=== PATIENT | female | born 1985 | race Caucasian/White ===

== ENCOUNTER → 2018-05-15 09:14 | Outpatient (CLI) | payer OTHER, SELFPAY | PROVIDERS: PCP Family Medicine; Visit Provider Nurse Practitioner | DX: E03.9 Hypothyroidism, unspecified (principal); E03.8 Other specified hypothyroidism; E06.3 Autoimmune thyroiditis | CPT/HCPCS: 36415; 84439; 84443 ==

== ENCOUNTER → 2018-10-13 14:12 | Outpatient (CLI) | payer OTHER, SELFPAY ==
[2018-10-13 17:12] LABS: Free T4, Direct Thyroxine 1.23 ng/dL (0.78-2.19)
== END ==
PROVIDERS: PCP Family Medicine; Visit Provider Nurse Practitioner
DX: E03.8 Other specified hypothyroidism (principal); E06.3 Autoimmune thyroiditis
CPT/HCPCS: 36415; 84439; 84443

== ENCOUNTER → 2019-08-11 10:16 | Outpatient (CLI) | payer OTHER, SELFPAY ==
[2019-08-11 11:47] LABS: TSH w/ Reflex to FT4 0.26 uIU/mL (0.47-4.68)
[2019-08-11 12:27] LABS: Free T4, Direct Thyroxine 1.31 ng/dL (0.78-2.19)
== END ==
PROVIDERS: PCP Family Medicine; Visit Provider Family Medicine
DX: E03.9 Hypothyroidism, unspecified (principal)
CPT/HCPCS: 36415; 84439; 84443

== ENCOUNTER → 2019-10-09 15:03 | Outpatient (CLI) | payer OTHER, SELFPAY ==
[2019-10-09 16:51] LABS: Thyroid Stimulating Hormone 0.75 uIU/mL (0.47-4.68)
== END ==
PROVIDERS: PCP Family Medicine; Visit Provider Family Medicine
DX: E03.9 Hypothyroidism, unspecified (principal)
CPT/HCPCS: 36415; 84443

== ENCOUNTER → 2020-08-08 15:21 | Outpatient (CLI) | payer OTHER, SELFPAY ==
[2020-08-08 19:05] LABS: TSH w/ Reflex to FT4 3.68 uIU/mL (0.47-4.68)
== END ==
PROVIDERS: PCP Family Medicine; Referring Provider Family Medicine; Visit Provider Family Medicine
DX: E03.9 Hypothyroidism, unspecified (principal)
CPT/HCPCS: 36415; 84443

== ENCOUNTER → 2020-11-03 16:00 | Outpatient (CLI) | payer OTHER, SELFPAY | PROVIDERS: PCP Family Medicine; Referring Provider Family Medicine; Visit Provider Family Medicine | DX: E03.9 Hypothyroidism, unspecified (principal) | CPT/HCPCS: 36415; 84443 ==

== ENCOUNTER → 2021-03-16 14:57 | Outpatient (CLI) | payer OTHER, SELFPAY | PROVIDERS: PCP Family Medicine; Visit Provider Family Medicine | DX: L02.93 Carbuncle, unspecified (principal) | CPT/HCPCS: 87070; 87075; 87077; 87147; 87186; 87205 ==

== ENCOUNTER → 2021-07-21 15:03 | Outpatient (CLI) | payer OTHER, SELFPAY ==
[2021-07-21 16:10] LABS: Add Manual Diff / Slide Review NO; Basophils Absolute Auto 0 /uL (0-100); Basophils Percent Auto 0.7 % (0-2); Eosinophils Absolute Auto 0 /uL (0-450); Hematocrit 40.8 % (36-46); Hemoglobin 13.7 g/dL (12.0-16.0); Lymphocytes Absolute Auto 1300 /uL (1100-4500); Lymphocytes Percent Auto 22.2 % (25-40); Mean Corpuscular HGB Conc 33.6 % (30-36); Mean Corpuscular Hemoglobin 30.6 PG (26-34); Mean Corpuscular Volume 91.2 fL (80-100); Monocytes Absolute Auto 300 /uL (0-900); Monocytes Percent Auto 5.2 % (3-14); Neutrophils Absolute Auto 4200 /uL (1500-7000); Neutrophils Percent Auto 71.9 % (50-75); Platelet Count 246 X10^3/uL (150-400); Red Blood Cell Count 4.47 X10^6/uL (4.0-5.2); Red Cell Distribution Width 13.1 % (11.6-14.8); White Blood Cell Count 5.8 X10^3/uL (4.5-11.0)
[2021-07-21 16:31] LABS: Alanine Aminotransferase 20 IU/L (<35); Albumin 4.8 g/dL (3.5-5.0); Albumin Globulin Ratio 1.5 (1.0-2.8); Alkaline Phosphatase 66 U/L (38-126); Aspartate Aminotransferase 28 IU/L (14-36); BUN Creatinine Ratio 14.3 (6-22); Bilirubin Total 0.9 mg/dL (0.2-1.3); Blood Urea Nitrogen 9 mg/dL (7-17); Calcium 9.4 mg/dL (8.4-10.2); Carbon Dioxide 27 mmol/L (22-32); Chloride 104 mmol/L (98-107); Estimated Glomerular Filt Rate > 60.0 mL/min (>60); Globulin 3.3 g/dL (1.7-4.1); Glucose 92 mg/dL (70-100); HEMOLYSIS < 15 (0-50); Potassium 3.9 mmol/L (3.4-5.1); Sodium 138 mmol/L (137-145); Total Protein 8.1 g/dL (6.3-8.2)
[2021-07-21 17:20] LABS: Vitamin B12 304 pg/mL (239-931)
== END ==
PROVIDERS: PCP Family Medicine; Referring Provider Physician Assistant; Visit Provider Physician Assistant
DX: R20.2 Paresthesia of skin (principal)
CPT/HCPCS: 36415; 80053; 82607; 83735; 84443; 85025

== ENCOUNTER → 2022-08-07 12:19 | Outpatient (CLI) | payer OTHER, SELFPAY ==
[2022-08-07 13:08] LABS: Add Manual Diff / Slide Review NO; Basophils Absolute Auto 0 /uL (0-100); Basophils Percent Auto 0.9 % (0-2); Eosinophils Absolute Auto 100 /uL (0-450); Eosinophils Percent Auto 1.5 % (2-4); Hematocrit 38.6 % (36-46); Hemoglobin 13.1 g/dL (12.0-16.0); Lymphocytes Absolute Auto 1400 /uL (1100-4500); Lymphocytes Percent Auto 28.3 % (25-40); Mean Corpuscular Hemoglobin 30.2 PG (26-34); Monocytes Absolute Auto 400 /uL (0-900); Monocytes Percent Auto 8.5 % (3-14); Neutrophils Absolute Auto 3100 /uL (1500-7000); Neutrophils Percent Auto 60.8 % (50-75); Platelet Count 290 X10^3/uL (150-400); Red Blood Cell Count 4.34 X10^6/uL (4.0-5.2); Red Cell Distribution Width 12.7 % (11.6-14.8)
[2022-08-07 13:28] LABS: Alanine Aminotransferase 21 IU/L (<35); Albumin 4.4 g/dL (3.5-5.0); Albumin Globulin Ratio 1.3 (1.0-2.8); Alkaline Phosphatase 55 U/L (38-126); Aspartate Aminotransferase 27 IU/L (14-36); BUN Creatinine Ratio 20.5 (6-22); Bilirubin Total 0.7 mg/dL (0.2-1.3); Blood Urea Nitrogen 15 mg/dL (7-17); Calcium 8.8 mg/dL (8.4-10.2); Carbon Dioxide 29 mmol/L (22-32); Chloride 100 mmol/L (98-107); Estimated Glomerular Filt Rate > 60 mL/min (>60); Globulin 3.3 g/dL (1.7-4.1); Glucose 89 mg/dL (70-100); HEMOLYSIS 21 (0-50); Potassium 4.4 mmol/L (3.4-5.1); Sodium 138 mmol/L (137-145); Total Protein 7.7 g/dL (6.3-8.2)
[2022-08-07 15:40] LABS: TSH w/ Reflex to FT4 1.58 uIU/mL (0.47-4.68)
== END ==
PROVIDERS: PCP Family Medicine; Referring Provider Family Medicine; Visit Provider Family Medicine
DX: R20.2 Paresthesia of skin (principal)
CPT/HCPCS: 36415; 80053; 84443; 85025

== ENCOUNTER → 2023-01-27 15:37 | Outpatient (CLI) | payer OTHER, SELFPAY ==
[2023-01-27 16:57] LABS: TSH w/ Reflex to FT4 0.29 uIU/mL (0.47-4.68)
[2023-01-27 17:53] LABS: Free T4, Direct Thyroxine 1.24 ng/dL (0.78-2.19)
== END ==
PROVIDERS: PCP Family Medicine; Referring Provider Family Medicine; Visit Provider Family Medicine
DX: E03.9 Hypothyroidism, unspecified (principal)
CPT/HCPCS: 36415; 84439; 84443

== ENCOUNTER → 2023-03-16 15:33 | Outpatient (CLI) | payer OTHER, SELFPAY | PROVIDERS: PCP Family Medicine; Referring Provider Family Medicine; Visit Provider Family Medicine | DX: E03.9 Hypothyroidism, unspecified (principal) | CPT/HCPCS: 36415; 84443 ==

== ENCOUNTER → 2023-08-03 15:38 | Outpatient (CLI) | payer OTHER, SELFPAY ==
[2023-08-03 18:24] LABS: TSH w/ Reflex to FT4 4.28 uIU/mL (0.47-4.68)
== END ==
PROVIDERS: PCP Family Medicine; Referring Provider Physician Assistant; Visit Provider Physician Assistant
DX: E03.9 Hypothyroidism, unspecified (principal)
CPT/HCPCS: 36415; 84443

== ENCOUNTER → 2023-09-26 15:13 | Outpatient (CLI) | payer OTHER, SELFPAY | PROVIDERS: PCP Family Medicine; Referring Provider Physician Assistant; Visit Provider Physician Assistant | DX: E03.9 Hypothyroidism, unspecified (principal) | CPT/HCPCS: 36415; 84443 ==

== ENCOUNTER → 2023-11-07 15:06 | Outpatient (CLI) | payer OTHER, SELFPAY ==
[2023-11-07 18:12] LABS: TSH w/ Reflex to FT4 4.92 uIU/mL (0.47-4.68)
[2023-11-07 18:56] LABS: Free T4, Direct Thyroxine 1.12 ng/dL (0.78-2.19)
== END ==
PROVIDERS: PCP Family Medicine; Referring Provider Physician Assistant; Visit Provider Physician Assistant
DX: E03.9 Hypothyroidism, unspecified (principal); R79.89 Other specified abnormal findings of blood chemistry
CPT/HCPCS: 84439; 84443

== ENCOUNTER → 2024-03-19 15:48 | Outpatient (CLI) | payer OTHER, SELFPAY ==
[2024-03-19 18:34] LABS: TSH w/ Reflex to FT4 0.67 uIU/mL (0.47-4.68)
== END ==
LOC: LAB 15:49
PROVIDERS: PCP Student in an Organized Health Care Education/Training Program; Referring Provider Student in an Organized Health Care Education/Training Program; Visit Provider Student in an Organized Health Care Education/Training Program
DX: E03.9 Hypothyroidism, unspecified (principal)
CPT/HCPCS: 36415; 84443

== ENCOUNTER → 2024-07-23 15:05 | Outpatient (CLI) | payer OTHER, SELFPAY ==
[2024-07-23 17:29] LABS: TSH w/ Reflex to FT4 3.59 uIU/mL (0.47-4.68)
== END ==
LOC: LAB 15:06
PROVIDERS: PCP Student in an Organized Health Care Education/Training Program; Referring Provider Student in an Organized Health Care Education/Training Program; Visit Provider Student in an Organized Health Care Education/Training Program
DX: E03.9 Hypothyroidism, unspecified (principal)
CPT/HCPCS: 36415; 84443

== ENCOUNTER 2024-11-09 08:20 | Emergency (ER) | payer OTHER, SELFPAY ==
[2024-11-09] VITALS (8 sets, daily range): BP systolic 116–151; BP diastolic 71–89; PULSE 89–111; RESP 10–23; TEMP 36.8–37.4; O2SAT 98–100; BMI 30.9
--- NOTE | 2024-11-09 08:26 | EKG_ITS ---
[address] [address] Test Date: 2024-11-09 Pat Name: Kristie Boone Department: Room: Gender: Female Acid Dipper: CECE : 1985 Requested By: Order Number: [id number] Reading MD: Ap Cohen MD Measurements Intervals [place] Rate: 99 P: 62 MA: 170 QRS: 48 QRSD: 78 T: 40 QT: 348 QTc: 446 Interpretive Statements Normal sinus rhythm Possible Left atrial enlargement Electronically Signed On 11-09-2024 15:50:43 PST by Ap Cohen MD
--- NOTE | 2024-11-09 08:28 | ED_ITS ---
HPI - Chest Pain General Chief Complaint: Chest Pain Stated Complaint: chest pain, poss anxiety, sent by [facility] Time Seen by Provider: 11/09/24 08:27 Source: patient, RN notes reviewed and old records reviewed Mode of arrival: Ambulatory Limitations: no limitations History of Present Illness HPI narrative: This is a 39-year-old history of hypothyroidism, anxiety who presents with complaint of left upper chest discomfort. Patient states Tuesday started having sort of heartburn symptoms that were midline she was burping a lot and has not upset some with the night before has been persistent but a little bit more localized off to the left side throughout Tuesday, and Tuesday. She states it still has not resolved. She had a similar episode sometime before 2022 they decided that was secondary to anxiety she was started on Lexapro and improved. She is presents today because it has not really resolved. She states she has a mild cold that is just starting with some nasal congestion but no other symptoms she denies fevers or chills no cold cough or congestion. States thinking about it seems to make it worse but putting pressure on the area seems to be helpful. She did note when she leans forward that is seems to increase with a little bit as well. Denies any nausea or vomiting. No shortness of breath. No swelling of extremities. No rash or skin changes. No lightheadedness or passing out. She was on levothyroxine she was taking hydroxyzine. Does not she was to be on Lexapro was very helpful but had side effects that caused her to stop it tried Wellbutrin but did not tolerate it well but has been off any medication for some time. Describes her anxiety as moderate at this time. Has had history of wisdom teeth removal and hemorrhoidectomy. Has a allergy to Suprax. No tobacco, has 1 alcoholic drink daily, no recreational drugs. Follows with Dr. Levi as her primary care physician. Related Data Home Medications Medication Instructions Recorded Confirmed spironolactone 50 mg tablet 50 mg PO BID 06/29/22 03/23/24 Previous Rx's Medication Instructions Recorded bupropion HCl 150 mg 24 hr tablet, 150 mg PO QAM #30 tabs 03/01/24 extended release (Wellbutrin XL) levothyroxine 137 mcg tablet 137 mcg PO DAILY #30 tabs 10/16/24 hydroxyzine HCl 25 mg tablet 25 mg PO BID PRN anxiety #60 tabs 11/08/24 Allergies Allergy/AdvReac Type Severity Reaction Status Date / Time cefixime [From SUPRAX] Allergy Unknown Verified 11/09/24 08:31 Review of Systems Review of Systems ROS Unobtainable: All systems reviewed & are unremarkable except as noted in HPI and below Patient History Medical History Overweight (BMI 25.0-29.9) Situational anxiety Insomnia Hypothyroidism Seasonal allergies Depression Anxiety (~1999) Migraines Headache Scoliosis Acne PCOS (polycystic ovarian syndrome) Ovarian cyst (~2006) Irregular menstrual cycle Irritable bowel syndrome (~1999) Surgical History Status post colonoscopy (~2013) Status post hemorrhoidectomy (~2008) History of third molar tooth extraction (~2008) Family History Grandfather Age: 92 Chronic kidney disease Dementia Sister Age: 28 Type 1 diabetes Stroke Seizures Father Cancer Grandfather Cancer Grandmother Cancer Grandmother No problems noted. Social History marital status: household members: family lives independently: Yes Smoking Status: Never smoker alcohol intake: current substance use type: does not use Smoking Status: Never smoker Exam Narrative Exam Narrative: GENERAL: Alert and oriented x three, well-appearing female in mild distress HEENT: Head normocephalic, atraumatic, EOMI, pupils reactive, face symmetric, moist mucous membranes NECK: Supple, full range of motion CARDIOVASCULAR: Regular rate and rhythm without murmurs, rubs or gallops. No JVD. No edema. Nontender to palpation. RESPIRATORY: Breath sounds equal bilaterally, no wheezes rales or rhonchi. ABDOMEN: Soft, nontender. Normoactive bowel sounds all 4 quadrants. No guarding or rebound, rigidity, no mass : No CVA tenderness EXTREMITIES: Normal range of motion, no clubbing or edema. Neurovascularly intact NEUROLOGICAL: Cranial nerves II through XII grossly intact. Moving all extremities SKIN: Warm, dry, no petechiae, no rashes or lesions. Initial Vital Signs Initial Vital Signs: Vital Signs Temperature 99.3 F 11/09/24 08:27 Pulse Rate 111 H 11/09/24 08:27 Respiratory Rate 22 11/09/24 08:27 Blood Pressure 151/89 H 11/09/24 08:27 Pulse Oximetry 98 11/09/24 08:27 Oxygen Delivery Method Room Air 11/09/24 08:27 Scores HEART Score Heart Score history: Moderately Suspicious Heart Score EKG: Normal Heart Score Age: < 45 years old Heart Score risk factors: No known risk factors Heart Score troponin: < or = to normal limit Heart Score Total: 1 Course Orders Ordered: Discontinued Medications Acetaminophen (Acetaminophen 325 Mg Tablet) 650 mg PO NOW ONE Stop: 11/09/24 09:30 Last Admin: 11/09/24 09:38 Dose: 650 mg Documented By: JEANNIE Vital Signs Vital signs: Vital Signs - 8 hr 11/09/24 11:45 Temperature 98.2 F Pulse Rate 89 Respiratory Rate 14 Blood Pressure 123/81 Pulse Oximetry 100 Oxygen Delivery Method Room Air MDM - Chest Pain Lab Data 11/09/24 09:32 11/09/24 09:32 Labs: Lab Results 11/09/24 Range/Units 09:32 WBC 4.7 (4.5-11.0) X10^3/uL RBC 4.75 (4.0-5.2) X10^6/uL Hgb 14.0 (12.0-16.0) g/dL Hct 42.0 (36-46) % MCV 88.4 (80-100) fL MCH 29.5 (26-34) PG MCHC 33.4 (30-36) % RDW 12.2 (11.6-14.8) % Plt Count 296 (150-400) X10^3/uL Neut % (Auto) 65.9 (50-75) % Lymph % (Auto) 26.6 (25-40) % [place] % (Auto) 6.2 (3-14) % Eos % (Auto) 0.7 L (2-4) % Baso % (Auto) 0.6 (0-2) % Neut # (Auto) 3100 (4688-9229) /uL Lymph # (Auto) 1200 (0248-5104) /uL [place] # (Auto) 300 (0-900) /uL Eos # (Auto) 0 (0-450) /uL Baso # (Auto) 0 (0-100) /uL D-Dimer 363 (<500) ng/ml Sodium 136 L (137-145) mmol/L Potassium 4.0 (3.4-5.1) mmol/L Chloride 107 (98-107) mmol/L Carbon Dioxide 23 (22-32) mmol/L BUN 12 (7-17) mg/dL Creatinine 0.70 (0.52-1.04) mg/dL Estimated GFR > 60 (>60) mL/min BUN/Creatinine Ratio 17.1 (6-22) Glucose 105 H (70-100) mg/dL Calcium 9.3 (8.4-10.2) mg/dL Total Bilirubin 0.7 (0.2-1.3) mg/dL AST 35 (14-36) IU/L ALT 27 (<35) IU/L Alkaline Phosphatase 70 (38-126) U/L Total Creatine Kinase 58 (30-135) U/L Troponin I < 0.012 (0.01-0.034) ng/mL NT-Pro-B Natriuret Pep < 20 (<125) pg/mL Total Protein 7.6 (6.3-8.2) g/dL Albumin 4.3 (3.5-5.0) g/dL Globulin 3.3 (1.7-4.1) g/dL Albumin/Globulin Ratio 1.3 (1.0-2.8) Lipase 90 (23-300) U/L Imaging Data Chest x-ray: Radiologist's Impression: Close Chest X-Ray (Signed) Reyes Pace - 11/09/[address] [address] XRay Report Signed Patient: Kristie Boone MR#: [id number] : 1985 Acct:[id number] Age/Sex: 39 / F Date of Service: 11/09/24 Loc: ED Accession Number: [id number] Procedure: XR chest 1V Ordering Provider: Neeta Doherty D.O. PROCEDURE: XR CHEST 1V INDICATIONS: chest pain TECHNIQUE: One view of the chest was acquired. COMPARISON: None. FINDINGS: Surgical changes and devices: None. Lungs and pleura: No dense consolidation or pleural effusion Mediastinum: Normal heart size Bones and chest wall: Unremarkable IMPRESSION: No acute radiographic abnormality on this single view study Dictated by: Reyes Pace M.D. on 11/09/2024 at 9:59 Approved by: Reyes Pace M.D. on 11/09/2024 at 9:59 ECG Data Attestation: I personally reviewed and interpreted this ECG as follows: Prior ECG tracings: available for review Interpretation: Sinus rhythm rate of 99 MD 170 QRS is 78 QTC of 446. Patient has prior from 12/12/2015 overall appears similar no acute MD changes no ST elevation depression noted. MDM Narrative Medical decision making narrative: 39-year-old presents with complaint of left chest discomfort notes she has had quite a bit of anxiety had sort of a similar presentation several years ago which improved after treatment of her anxiety. She was slightly tachycardic but also tearful initially on arrival tachycardia resolved without any intervention. Patient had labs, chest x-ray EKG. EKG shows sinus rhythm no acute ST changes Labs show normal CBC, dimer is negative at 363. Sodium is 136 electrolytes are otherwise appropriate glucose is 105 creatinine is normal LFTs are negative lipase is 90, troponin less than 0.012 BNP less than 20 Chest x-ray shows no acute radiographic abnormality. Heart score is 1. Patient has had 3 days of chest discomfort that has been persistent without any resolution no acute EKG changes, troponin is negative with greater than 24 hours of persistent symptoms. ACS, PE, pericarditis, differential workup so far does not reflect that these are any potential sources of symptoms patient is felt appropriate for discharge but plan for follow-up. Discharge Plan Departure Patient Disposition: Home Clinical Impression: Atypical chest pain Instructions: DI for Atypical Chest Pain Activity Restrictions/Additional Instructions: Please follow up for recheck with your primary care physician. Your workup today has overall been reassuring, your labs, imaging and EKG show no major changes at this time. If you find it helpful you can take acetaminophen up to a 1000 mg every 6 hours and/or ibuprofen up to 600 mg every 6 hours. If you appreciate heartburn or reflux changes you can take Pepcid 40 mg daily [id number]. Please return for new or concerning changes any lightheadedness or passing out, worsening chest pain, shortness of breath, fevers, persistent vomiting, new swelling of extremities or other new or concerning changes. Prescriptions: No Action spironolactone 50 mg tablet 50 mg PO BID bupropion HCl [Wellbutrin XL] 150 mg tablet extended release 24 hr 150 mg PO QAM Qty: 30 3RF levothyroxine 137 mcg tablet 137 mcg PO DAILY Qty: 30 3RF hydroxyzine HCl 25 mg tablet 25 mg PO BID PRN (Reason: anxiety) Qty: 60 0RF Referrals: Rand Levi MD [Primary Care Provider] - Stand Alone Forms: Patient Portal/API/Survey
--- NOTE | 2024-11-09 08:35 | PC.NURSE ---
Pt states she had acid reflux on Tuesday and took OTC medicines. Pt denies abd pain. Redness/rash noted over chest--pt states this sometimes will pop up. Pt reports feeling hot as well. Pt states she has been having chest pain but also has been feeling very anxious and wanted to be sure she was okay
--- NOTE | 2024-11-09 08:42 | DI.RAD.S_ITS ---
PROCEDURE: XR CHEST 1V INDICATIONS: chest pain TECHNIQUE: One view of the chest was acquired. COMPARISON: None. FINDINGS: Surgical changes and devices: None. Lungs and pleura: No dense consolidation or pleural effusion Mediastinum: Normal heart size Bones and chest wall: Unremarkable IMPRESSION: No acute radiographic abnormality on this single view study Dictated by: Reyes Pace M.D. on 11/09/2024 at 9:59 Approved by: Reyes Pace M.D. on 11/09/2024 at 9:59
[2024-11-09] MEDS: ACETAMINOPHEN 325 MG TABLET 650 MG PO (09:38)
[2024-11-09 09:46] LABS: Add Manual Diff / Slide Review NO; Basophils Absolute Auto 0 /uL (0-100); Basophils Percent Auto 0.6 % (0-2); Eosinophils Absolute Auto 0 /uL (0-450); Eosinophils Percent Auto 0.7 % (2-4); Lymphocytes Absolute Auto 1200 /uL (1100-4500); Lymphocytes Percent Auto 26.6 % (25-40); Mean Corpuscular HGB Conc 33.4 % (30-36); Mean Corpuscular Hemoglobin 29.5 PG (26-34); Mean Corpuscular Volume 88.4 fL (80-100); Monocytes Absolute Auto 300 /uL (0-900); Monocytes Percent Auto 6.2 % (3-14); Neutrophils Absolute Auto 3100 /uL (1500-7000); Neutrophils Percent Auto 65.9 % (50-75); Platelet Count 296 X10^3/uL (150-400); Red Blood Cell Count 4.75 X10^6/uL (4.0-5.2); Red Cell Distribution Width 12.2 % (11.6-14.8); White Blood Cell Count 4.7 X10^3/uL (4.5-11.0)
[2024-11-09 09:58] LABS: D Dimer 363 ng/ml (<500)
[2024-11-09 10:08] LABS: Alanine Aminotransferase 27 IU/L (<35); Albumin 4.3 g/dL (3.5-5.0); Albumin Globulin Ratio 1.3 (1.0-2.8); Alkaline Phosphatase 70 U/L (38-126); Aspartate Aminotransferase 35 IU/L (14-36); BUN Creatinine Ratio 17.1 (6-22); Bilirubin Total 0.7 mg/dL (0.2-1.3); Blood Urea Nitrogen 12 mg/dL (7-17); Calcium 9.3 mg/dL (8.4-10.2); Carbon Dioxide 23 mmol/L (22-32); Chloride 107 mmol/L (98-107); Creatine Kinase 58 U/L (30-135); Estimated Glomerular Filt Rate > 60 mL/min (>60); Globulin 3.3 g/dL (1.7-4.1); Glucose 105 mg/dL (70-100); HEMOLYSIS 29 (0-50); Lipase 90 U/L (23-300); Sodium 136 mmol/L (137-145); Total Protein 7.6 g/dL (6.3-8.2)
[2024-11-09 10:20] LABS: NT-proBNP (BNP-Adult 18+) < 20 pg/mL (<125); Troponin I < 0.012 ng/mL (0.01-0.034)
== END 2024-11-09 11:45 | disposition home or self-care (01) ==
PROVIDERS: Emergency Provider Emergency Medicine; PCP Student in an Organized Health Care Education/Training Program
DX: R07.89 Other chest pain (principal); R00.0 Tachycardia, unspecified
CPT/HCPCS: 71045; 80053; 82550; 83690; 83880; 84484; 85025; 85379; 93005; 93010; 99283; 99284

== ENCOUNTER → 2024-12-15 10:42 | Outpatient (CLI) | payer OTHER, SELFPAY ==
[2024-12-15 11:48] LABS: Free T4, Direct Thyroxine 1.17 ng/dL (0.78-2.19)
[2024-12-15 12:01] LABS: Thyroid Stimulating Hormone 3.64 uIU/mL (0.47-4.68)
== END ==
LOC: LAB 10:42
PROVIDERS: PCP Student in an Organized Health Care Education/Training Program; Referring Provider Student in an Organized Health Care Education/Training Program; Visit Provider Student in an Organized Health Care Education/Training Program
DX: E03.9 Hypothyroidism, unspecified (principal)
CPT/HCPCS: 36415; 84439; 84443; 84481

== ENCOUNTER → 2025-02-14 12:51 | Outpatient (CLI) | payer OTHER, SELFPAY ==
[2025-02-14 14:52] LABS: Follicle Stimulating Hormone 4.66 mIU/mL
[2025-02-17 14:08] LABS: Estrogen 103 pg/mL (.)
== END ==
PROVIDERS: PCP Student in an Organized Health Care Education/Training Program; Referring Provider Student in an Organized Health Care Education/Training Program; Visit Provider Student in an Organized Health Care Education/Training Program
DX: R23.2 Flushing (principal)
CPT/HCPCS: 36415; 82672; 83001; 84146

== ENCOUNTER → 2025-03-22 11:36 | Outpatient (CLI) | payer OTHER, SELFPAY ==
[2025-03-22 12:53] LABS: Free T3, Triiodothyronine Free 3.78 pg/mL (2.77-5.27); Free T4, Direct Thyroxine 1.08 ng/dL (0.78-2.19); Vitamin D 25 Hydroxy (D3) 47.3 ng/mL (30.0-100.0)
[2025-03-22 13:07] LABS: Thyroid Stimulating Hormone 1.63 uIU/mL (0.47-4.68)
[2025-03-22 13:26] LABS: Vitamin B12 278 pg/mL (239-931)
== END ==
PROVIDERS: PCP Student in an Organized Health Care Education/Training Program; Referring Provider Student in an Organized Health Care Education/Training Program; Visit Provider Student in an Organized Health Care Education/Training Program
DX: E03.9 Hypothyroidism, unspecified (principal); R00.2 Palpitations; R23.2 Flushing; Z79.899 Other long term (current) drug therapy; Z13.21 Encounter for screening for nutritional disorder
CPT/HCPCS: 36415; 82306; 82607; 84439; 84443; 84481

== ENCOUNTER → 2025-04-23 11:44 | Outpatient (CLI) | payer OTHER, SELFPAY ==
[2025-04-24 16:09] LABS: Anti Thyroglobulin Antibody <1.0 IU/mL (0.0-0.9); Thyroid Peroxidase Antibodies 13 IU/mL (0-34)
== END ==
PROVIDERS: PCP Student in an Organized Health Care Education/Training Program; Referring Provider Student in an Organized Health Care Education/Training Program; Visit Provider Student in an Organized Health Care Education/Training Program
DX: E03.9 Hypothyroidism, unspecified (principal)
CPT/HCPCS: 36415; 86376; 86800